=== PATIENT | female | born 1990 | race Caucasian/White ===

== ENCOUNTER 2020-01-06 12:37 | Outpatient (REF) | payer OTHER, SELFPAY ==
[2020-01-06 13:33] LABS: MANUAL DIFF FLAG NO
[2020-01-06 13:35] LABS: Basophils Absolute Auto 0.1 X10*3/uL (0.0-0.2); Basophils Percent Auto 0.8 % (0-2); Eosinophils Absolute Auto 0.3 X10*3/uL (0.0-0.4); Eosinophils Percent Auto 3.7 % (0-4); Hemoglobin 12.3 g/dl (12.0-16.0); Imm Gran Abs Auto 0.02 X10*3/uL (0.00-0.03); Imm Gran Pct Auto 0.3 % (0.0-0.4); Lymphocytes Absolute Auto 2.8 X10*3/uL (1.2-4.9); Lymphocytes Percent Auto 38.2 % (20-40); Mean Corpuscular HGB Conc 33.2 g/dl (31.0-35.0); Mean Corpuscular Hemoglobin 26.8 pg (27.0-33.0); Mean Corpuscular Volume 80.6 fL (80-98); Mean Platelet Volume 9.2 fL (9.4-12.3); Monocytes Absolute Auto 0.4 X10*3/uL (0.1-1.2); Monocytes Percent Auto 5.8 % (2-11); Neutrophils Absolute Auto 3.7 X10*3/uL (2.0-8.3); Neutrophils Percent Auto 51.2 % (45-73); Platelet Count 304 X10*3/uL (160-400); Red Blood Count 4.59 X10*6/uL (4.20-5.50); Red Cell Distribution Width 14.6 % (11.0-16.0); White Blood Count 7.3 X10*3/uL (4.8-10.8)
[2020-01-06 14:16] LABS: Alanine Aminotransferase 12 U/L (0-31); Albumin Level 4.3 g/dL (3.5-5.0); Alkaline Phosphatase 128 U/L (39-117); Anion Gap 12 (12-20); Aspartate Amino Transferase 17 U/L (5-31); Bilirubin Total 0.4 mg/dL (0.0-1.0); Blood Urea Nitrogen 10 mg/dL (9-16); Calcium 8.8 mg/dL (8.4-10.2); Carbon Dioxide 28 mmol/L (22-29); Chloride 101 mmol/L (96-108); Cholesterol 235 mg/dL; Estimated Glomerular Filt Rate > 60; Glucose Fasting 89 mg/dL (60-99); HDL Cholesterol 30 mg/dL; LDL Cholesterol Calculated 167 mg/dl; Potassium 4.4 mmol/l (3.3-5.1); Sodium 137 mmol/L (135-145); Total Protein 7.2 g/dL (6.5-8.0); Triglycerides 190 mg/dL
[2020-01-06 14:38] LABS: Thyroid Stimulating Hormone 0.64 mIU/mL (0.32-4.0)
== END 2020-01-06 12:38 | disposition home or self-care (01) ==
LOC: HO.LAB 12:37
PROVIDERS: PCP Internal Medicine; Visit Provider Internal Medicine
DX: F31.89 Other bipolar disorder (principal); J45.909 Unspecified asthma, uncomplicated; Z00.00 Encounter for general adult medical examination without abnormal findings; Z72.0 Tobacco use; Z79.891 Long term (current) use of opiate analgesic
CPT/HCPCS: 36415; 80053; 80061; 84443; 85025

== ENCOUNTER 2020-01-21 11:11 | Outpatient (REF) | payer OTHER, SELFPAY ==
--- NOTE | 2020-01-21 13:50 | MHC.AU.P13 ---
Adult Audiological Evaluation Date of Visit: 01/21/20 Digital Program Manager Used: Not Applicable Reason for Appointment: Audiologic evaluation due to difficulty understanding speech, particularly when a person is speaking from a distance/other room and when background noise is present. Frequently asks for speech to be repeated. Does patient feel they have a hearing loss?: Yes If Yes, Which Ear?: Both Ears When Was Hearing Difficulty First Noticed?: 8-9 months ago Has hearing been tested previously?: No Hearing Handicap Inventory HHIE SCORE: 18 Based on HHIE score, patient has: Mild to moderate perceived hearing handicap Ear History: Family History of Hearing Loss?: Yes: Brother, wears hearing aids Medical History: Tobacco Use Asthma Bipolar Disorder Medication List: Methadone, Gabapentin, Prazosin, Trazodone, Cyclobenzaprin, Atorvastatin, Lamotragine Otoscopy: Right Ear: Unremarkable Left Ear: Unremarkable Tympanometry: Right Ear: Normal Middle Ear System (Type A) Reduced Middle Ear Compliance (Type As) Left Ear: Normal Middle Ear System (Type A) Otoacoustic Emissions Frequency Range Used: 1.6-8 kHz Right Ear Results: Present Emissions Analysis: Present emissions suggest normal cochlear function Rules out peripheral hearing loss greater than a mild degree Left Ear Results: Present Emissions Analysis: Present emissions suggest normal cochlear function Rules out peripheral hearing loss greater than a mild degree Hearing Evaluation: Transducer(s) Used: Insert Earphones Method: Conventional Audiometry Stimuli Used: Pure Tones Right Ear: Description of Hearing: Normal hearing thresholds through all frequencies Left Ear: Description of Hearing: Normal hearing thresholds through all frequencies Speech Recognition Threshold (SRT): Method Used: Monitored Live Voice Stimuli Used: Spondee Words Right Ear: 10 dB HL Left Ear: 10 dB HL Word Discrimination: Method: Recorded Lists Word Lists Used: NU-6 Right Ear: 96% at a listening level of 50 dB HL Left Ear: 96% at a listening level of 50 dB HL QuickSIN: Binaural Quick SIN Test: 3 dB SNR Loss, suggesting Magalie experiences a mild degree of difficulty understanding speech with increasing levels of background noise compared to other normal hearing individuals. Comparison: Compared to the most recent evaluation: N/A Recommendations: Recommendations: No further audiological action is indicated at this time. Recommendations (Other): Discussed hearing vs listening skills. Magalie has normal hearing thresholds but difficulty understanding speech. Talked about the need for her full attention when a person speaks to her. Discussed and provided a handout regarding Communication Strategies to use to improve speech understanding as much as possible. Also talked about how many of her medications can significantly slow down auditory processing skills causing these speech understanding difficulties. It is important Magalie is on these medications, and she (and her communication partners) will need to develop strategies to help improve her listening skills Diagnosis: Primary Diagnosis: H93.293 Abnormal Auditory Perception Services Performed: Services Performed: Comprehensive Audiological Evaluation (CPT 52646) Diagnostic Otoacoustic Emissions (CPT 01560, 26+TC) Tympanometry (CPT 03314) Signature: Provider: Ritchie Yen, CCC-A
== END 2020-01-21 11:12 | disposition home or self-care (01) ==
LOC: HO.SH 11:11
PROVIDERS: PCP Internal Medicine; Referring Provider Internal Medicine; Visit Provider Internal Medicine
DX: H93.293 Other abnormal auditory perceptions, bilateral (principal)
CPT/HCPCS: 92557; 92567; 92588

== ENCOUNTER 2020-08-03 11:56 | Outpatient (REF) | payer OTHER, SELFPAY ==
[2020-08-03 13:58] LABS: Alanine Aminotransferase 26 U/L (0-31); Albumin Level 4.2 g/dL (3.5-5.0); Alkaline Phosphatase 139 U/L (39-117); Anion Gap 14 (12-20); Aspartate Amino Transferase 16 U/L (5-31); Bilirubin Total 0.3 mg/dL (0.0-1.0); Blood Urea Nitrogen 11 mg/dL (9-16); Calcium 8.9 mg/dL (8.4-10.2); Carbon Dioxide 27 mmol/L (22-29); Chloride 101 mmol/L (96-108); Cholesterol 160 mg/dL; Estimated Glomerular Filt Rate > 60; Glucose Random 98 mg/dL (60-115); HDL Cholesterol 36 mg/dL; LDL Cholesterol Calculated 97 mg/dl; Potassium 4.3 mmol/L (3.3-5.1); Sodium 138 mmol/L (135-145); Total Protein 6.8 g/dL (6.5-8.0); Triglycerides 138 mg/dL
== END 2020-08-03 11:57 | disposition home or self-care (01) ==
LOC: HO.LAB 11:56
PROVIDERS: PCP Internal Medicine; Visit Provider Internal Medicine
DX: E78.2 Mixed hyperlipidemia (principal); K21.9 Gastro-esophageal reflux disease without esophagitis; M54.5 Low back pain; Z72.0 Tobacco use
CPT/HCPCS: 36415; 80053; 80061

== ENCOUNTER → 2021-06-08 10:35 | Outpatient (BNVA) | payer OTHER, SELFPAY | PROVIDERS: PCP Family Medicine; Referring Provider Internal Medicine; Visit Provider Physician Assistant Surgical | DX: Z13.89 Encounter for screening for other disorder (principal) ==

== ENCOUNTER → 2021-06-23 09:04 | Outpatient (BNVA) | payer OTHER, SELFPAY | PROVIDERS: PCP Internal Medicine; Referring Provider Internal Medicine; Visit Provider Physician Assistant Surgical | DX: E66.01 Morbid (severe) obesity due to excess calories (principal); Z68.41 Body mass index [BMI] 40.0-44.9, adult | CPT/HCPCS: 99202 ==

== ENCOUNTER 2021-06-27 | Outpatient (REF) | payer OTHER, SELFPAY ==
[2021-06-28 14:59] LABS: H Pylori Breath Test Negative (Negative)
== END 2021-06-27 00:01 | disposition home or self-care (01) ==
LOC: HO.LNP
PROVIDERS: Visit Provider Physician Assistant Surgical
DX: E66.01 Morbid (severe) obesity due to excess calories (principal)
CPT/HCPCS: 83013

== ENCOUNTER → 2021-06-27 10:55 | Outpatient (BNVA) | payer OTHER, SELFPAY | PROVIDERS: PCP Internal Medicine; Referring Provider Internal Medicine; Visit Provider Physician Assistant | DX: Z11.0 Encounter for screening for intestinal infectious diseases (principal) | CPT/HCPCS: 99211 ==

== ENCOUNTER 2021-07-11 08:57 | Outpatient (REF) | payer OTHER, SELFPAY ==
--- NOTE | ~2021-07-11 | XR_ITS ---
EXAMINATION: XR CHEST CLINICAL INFORMATION: Moderate to severe obesity due to excess calories. COMPARISON: None TECHNIQUE: 2 views of the chest were obtained. FINDINGS: The lungs are well-expanded and clear. Incidental finding of a small cyst noted in the right upper lobe. The heart size and pulmonary vascularity is normal. There is mild dextroscoliosis of dorsal spine. No lytic process. XR/XR chest 2V IMPRESSION: Unremarkable chest exam.
--- NOTE | 2021-07-11 09:03 | ECG_ITS ---
Test Reason : E66.01 Blood Pressure : / mmHG Vent. Rate : 074 BPM Atrial Rate : 074 BPM P-R Int : 152 ms QRS Dur : 088 ms QT Int : 418 ms P-R-T Axes : 061 -02 020 degrees QTc Int : 463 ms Normal sinus rhythm Normal ECG No previous ECGs available Referred By: Vasiliy Abreu Electronically Signed By:TANNER DONALD MD
[2021-07-11 09:35] LABS: MANUAL DIFF FLAG NO
[2021-07-11 09:54] LABS: Basophils Percent Auto 0.4 % (0-2); Eosinophils Absolute Auto 0.2 X10*3/uL (0.0-0.4); Eosinophils Percent Auto 2.1 % (0-4); Hemoglobin 10.2 g/dl (12.0-16.0); Imm Gran Abs Auto 0.06 X10*3/uL (0.00-0.03); Imm Gran Pct Auto 0.6 % (0.0-0.4); Lymphocytes Percent Auto 19.7 % (20-40); Mean Corpuscular HGB Conc 30.9 g/dl (31.0-35.0); Mean Corpuscular Hemoglobin 21.7 pg (27.0-33.0); Mean Corpuscular Volume 70.1 fL (80.0-98.0); Mean Platelet Volume 8.9 fL (9.4-12.3); Monocytes Absolute Auto 0.5 X10*3/uL (0.1-1.2); Monocytes Percent Auto 4.5 % (2-11); Neutrophils Absolute Auto 7.3 x10*3/uL (2.0-8.3); Neutrophils Percent Auto 72.7 % (45-73); Platelet Count 398 X10*3/uL (160-400); Red Blood Count 4.71 X10*6/uL (4.20-5.50); Red Cell Distribution Width 18.1 % (11.0-16.0)
[2021-07-11 10:08] LABS: Estimated Average Glucose 128 mg/dL; Hemoglobin A1c % 6.1 %
[2021-07-11 10:26] LABS: Alanine Aminotransferase 12 U/L (0-31); Albumin Level 4.1 g/dL (3.5-5.0); Alkaline Phosphatase 163 U/L (39-117); Anion Gap 12 (12-20); Aspartate Amino Transferase 11 U/L (5-31); Bilirubin Total 0.2 mg/dL (0.0-1.0); Blood Urea Nitrogen 12 mg/dL (9-16); Calcium 9.5 mg/dL (8.4-10.2); Carbon Dioxide 29 mmol/L (22-29); Chloride 101 mmol/L (96-108); Cholesterol 135 mg/dL; Estimated Glomerular Filt Rate > 60; Glucose Random 109 mg/dL (60-115); HDL Cholesterol 31 mg/dL; Iron 17 mcg/dL (30-160); LDL Cholesterol Calculated 85 mg/dl; Percent Iron Saturation 5 % (15-50); Potassium 4.3 mmol/L (3.3-5.1); Sodium 138 mmol/L (135-145); Total Iron Binding Capacity 318 mcg/dL (228-428); Total Protein 7.1 g/dL (6.5-8.0); Triglycerides 96 mg/dL; Unsaturated Iron Binding 301 ug/dL
[2021-07-11 10:52] LABS: Ferritin 26 ng/mL (10-122); Insulin 20 uU/mL (2-29); TSH reflex Free T4 0.88 uIU/mL (0.32-4.0); Vitamin D 25-OH Total 26.5 ng/mL (>30)
[2021-07-11 10:55] LABS: Folate 11.3 ng/mL (> or = 4.0); Vitamin B12 1055 pg/mL (200-900)
[2021-07-12 12:42] LABS: Calcium (PTHI) 9.2 mg/dL (8.6-10.2); PTHI 70 pg/mL (16-77)
[2021-07-14 00:02] LABS: Zinc 61 mcg/dL (60-130)
[2021-07-14 22:56] LABS: Vitamin A 24 mcg/dL (38-98)
[2021-07-16 12:16] LABS: Vitamin B1 14 nmol/L (8-30)
== END 2021-07-11 08:58 | disposition home or self-care (01) ==
LOC: HO.LAB 08:57
PROVIDERS: PCP Internal Medicine; Visit Provider Physician Assistant Surgical
DX: Z01.818 Encounter for other preprocedural examination (principal); E66.01 Morbid (severe) obesity due to excess calories
CPT/HCPCS: 36415; 71046; 80053; 80061; 82306; 82607; 82728; 82746; 83036; 83525; 83540; 83970; 84425; 84443; 84590; 84630; 85025; 86140; 93005

== ENCOUNTER → 2021-07-13 10:17 | Outpatient (BNVA) | payer OTHER, SELFPAY | PROVIDERS: PCP Internal Medicine; Visit Provider Surgery | DX: Z13.89 Encounter for screening for other disorder (principal) ==

== ENCOUNTER → 2021-07-20 11:15 | Outpatient (BNVA) | payer OTHER, SELFPAY | PROVIDERS: PCP Internal Medicine; Visit Provider Counselor Mental Health | DX: F50.81 Binge eating disorder (principal); F33.1 Major depressive disorder, recurrent, moderate; E66.01 Morbid (severe) obesity due to excess calories; F11.20 Opioid dependence, uncomplicated | CPT/HCPCS: 90791 ==

== ENCOUNTER → 2021-08-03 11:15 | Outpatient (BNVA) | payer OTHER, SELFPAY | PROVIDERS: PCP Internal Medicine; Visit Provider Counselor Mental Health | DX: F50.81 Binge eating disorder (principal); F11.20 Opioid dependence, uncomplicated; F33.1 Major depressive disorder, recurrent, moderate; E66.01 Morbid (severe) obesity due to excess calories | CPT/HCPCS: 90834 ==

== ENCOUNTER 2021-10-24 09:55 | Outpatient (REF) | payer OTHER, SELFPAY ==
--- NOTE | ~2021-10-24 | XR_ITS ---
EXAMINATION: RIGHT HAND AND WRIST. CLINICAL INFORMATION: Fall. Pain COMPARISON: None TECHNIQUE: 4 views. FINDINGS: There is no visible acute fracture, dislocation or subluxation. The joint spaces are maintained normal. The soft tissues are normal. XR/XR hand wrist RT IMPRESSION: Unremarkable right hand/wrist exam
== END 2021-10-24 09:56 | disposition home or self-care (01) ==
LOC: HO.XRAY 09:55
PROVIDERS: PCP Internal Medicine; Visit Provider Internal Medicine
DX: M79.641 Pain in right hand (principal); M25.531 Pain in right wrist
CPT/HCPCS: 73110; 73130

== ENCOUNTER → 2022-03-10 08:21 | Outpatient (BNVA) | payer OTHER, SELFPAY | PROVIDERS: PCP Internal Medicine; Visit Provider Surgery | DX: Z13.89 Encounter for screening for other disorder (principal) ==

== ENCOUNTER 2023-10-19 10:20 | Outpatient (REF) | payer OTHER, SELFPAY ==
[2023-10-19 14:02] LABS: Alanine Aminotransferase 29 U/L (0-31); Alkaline Phosphatase 140 U/L (39-117); Anion Gap 14 (12-20); Aspartate Amino Transferase 29 U/L (5-31); Bilirubin Total 0.4 mg/dL (0.0-1.0); Blood Urea Nitrogen 7 mg/dL (9-16); Calcium 9.3 mg/dL (8.4-10.2); Carbon Dioxide 24 mmol/L (22-29); Chloride 101 mmol/L (96-108); Cholesterol 204 mg/dL (<200); Estimated Glomerular Filt Rate > 60; Glucose Random 110 mg/dL (60-115); HDL Cholesterol 31 mg/dL (>40); LDL Cholesterol Calculated 150 mg/dL (<100); Potassium 4.4 mmol/L (3.3-5.1); Sodium 135 mmol/L (135-145); Total Protein 7.8 g/dL (6.5-8.0); Triglycerides 116 mg/dL (<150)
[2023-10-19 14:20] LABS: HCG Quantitative < 2 mIU/mL; Thyroid Stimulating Hormone 1.03 uIU/mL (0.32-4.0)
== END 2023-10-19 10:21 | disposition home or self-care (01) ==
LOC: HO.10HDL 10:20
PROVIDERS: Visit Provider Internal Medicine
DX: N91.1 Secondary amenorrhea (principal); Z72.0 Tobacco use
CPT/HCPCS: 36415; 80053; 80061; 84443; 84702